=== PATIENT | male | born 1960 | race Caucasian/White ===

== ENCOUNTER 2021-01-30 19:12 | Emergency (ER) | payer MEDICARE ==
[2021-01-30] MEDS ORDERED: Famotidine 20 MG/2 ML SDV IVPUSH ONE (19:18)
[2021-01-30] MEDS ORDERED: diphenhydrAMINE 50 MG/ML SDV IVPUSH ONE (19:18)
[2021-01-30] MEDS ORDERED: EPINEPHrine 1 MG/ML SDV IM ONE (19:18)
[2021-01-30] MEDS ORDERED: Sodium Chloride 0.9% 10 ML Syringe FLUSH PRN (19:18)
[2021-01-30] MEDS ORDERED: methylPREDNISolone Sodium Succinate 125 MG/2 ML SDV IVPUSH ONE (19:20)
[2021-01-30] MEDS ORDERED: Sodium Chloride 0.9% 1,000 ML IV SCH (19:30)
[2021-01-30] MEDS ORDERED: hydrOXYzine HCl 25 MG Tab PO ONE (19:59)
--- NOTE | 2021-01-30 21:34 | EDM.PDOC ---
ED HPI GENERAL MEDICAL PROBLEM - General Chief Complaint: Allergic Reaction Stated Complaint: HIVES AND SOB Time Seen by Provider: 01/30/21 19:16 Source of Information: Reports: Patient History Limitations: Reports: No Limitations - History of Present Illness INITIAL COMMENTS - FREE TEXT/NARRATIVE: Tex is a 60-year-old male presenting to the ED with an acute anaphylactoid reaction that started about an hour ago. Patient has a history of intermittent anaphylactic reactions of unknown etiology and was prescribed methylprednisolone to take at the onset of symptoms. Patient took 2 of his tablets (10 mg each) and 2 tablets of Benadryl (50 mg total) prior to coming in. He did drive himself here. He is complaining of some shortness of breath and chest tightness. He has generalized urticaria that is quite pruritic. He states he gets about 1 of these attacks every 6 months. He has had allergy testing but they have not been able to determine what the trigger is for these reactions. Treatments READING EFFICIENCY COURSE DIRECTOR: Reports: Other Medication(s) Other Treatments READING EFFICIENCY COURSE DIRECTOR: X1 25mg benadryl, x2 4mg methylprednisolone denies pain Pain Score (Numeric/FACES): 0 - Related Data Allergies Allergy/AdvReac Type Severity Reaction Status Date / Time No Known Allergies Allergy Verified 01/30/21 19:34 Home Meds: Home Meds Latanoprost [Xalatan 0.005% Ophth Soln] 1 drop EYEBOTH BEDTIME 09/03/15 [History] Doxycycline [Vibra-Tabs] 100 mg PO ASDIRECTED PRN 01/30/21 [History] EPINEPHrine [Epipen 2-Jose M] 0.3 mg IJ ASDIRECTED PRN #2 auto.injct 01/30/21 [Rx] Fluocinonide [Lidex 0.05% Oint] 30 gm TOP BID 01/30/21 [History] Metoprolol Succinate [Toprol Xl] 25 mg PO DAILY 01/30/21 [History] hydrOXYzine pamoate [Hydroxyzine Pamoate] 25 mg PO QID PRN #30 capsule 01/30/21 [Rx] lisinopriL [Lisinopril] 20 mg PO DAILY 01/30/21 [History] Past Medical History HEENT History: Reports: Glaucoma, Impaired Vision Other HEENT History: wears glasses Cardiovascular History: Reports: Hypertension, SOB on Exertion Gastrointestinal History: Reports: Colon Polyp, GERD Genitourinary History: Reports: Renal Calculus Musculoskeletal History: Reports: Back Pain, Chronic, Neck Pain, Chronic Neurological History: Reports: Concussion, Migraines Psychiatric History: Reports: Addiction, Anxiety Endocrine/Metabolic History: Reports: Obesity/BMI 30+ Dermatologic History: Reports: Eczema - Infectious Disease History Infectious Disease History: Reports: Chicken Pox - Past Surgical History HEENT Surgical History: Reports: Oral Surgery Cardiovascular Surgical History: Reports: None Respiratory Surgical History: Reports: None GI Surgical History: Reports: Colonoscopy Male Surgical History: Reports: None Endocrine Surgical History: Reports: None Neurological Surgical History: Reports: None Musculoskeletal Surgical History: Reports: Carpal Tunnel Other Musculoskeletal Surgeries/Procedures:: left trigger finger Dermatological Surgical History: Reports: None Social & Family History - Tobacco Use Tobacco Use Status *Q: Never Tobacco User - Caffeine Use Caffeine Use: Reports: Coffee - Recreational Drug Use Recreational Drug Use: Yes Drug Use in Last 12 Months: Yes - Living Situation & Occupation Living situation: Reports: Single Occupation: Disabled (lives 2 miles from [place], [place].) ED ROS ALLERGIC REACTION - Review of Systems Review Of Systems: See Below Constitutional: Reports: No Symptoms HEENT: Reports: Throat Swelling Respiratory: Reports: Shortness of Breath Cardiovascular: Reports: Dyspnea on Exertion Endocrine: Reports: No Symptoms GI/Abdominal: Reports: Abdominal Pain (Epigastric discomfort), Nausea : Reports: No Symptoms Musculoskeletal: Reports: No Symptoms Skin: Reports: Pruritis (Severe pruritus in the distribution of the urticaria. There are some excoriations that are now bleeding on the head.), Erythema (Rushing of the skin especially around the urticaria), Urticaria (Generalized), Other (History of psoriasis) Neurological: Reports: No Symptoms Psychiatric: Reports: Anxiety Hematologic/Lymphatic: Reports: No Symptoms Immunologic: Reports: Anaphylaxis (Anaphylaxis of unknown etiology) ED EXAM GENERAL NO PERIP PULSE - Physical Exam Exam: See Below Exam Limited By: No Limitations General Appearance: Alert, Anxious, Moderate Distress, Obese Eye Exam: Bilateral Eye: EOMI, PERRL Throat/Mouth: No Airway Compromise, Other (Mild throat swelling and erythema. Minimal muffling of the voice. No stridor.) Head: Facial Swelling (Periorbital facial swelling), Other (Corrugations behind the ear that are now slightly bloody.) Neck: Supple, Non-Tender, Full Range of Motion, Other (Urticaria on the neck extending up to the jaw). No: Lymphadenopathy (R), Lymphadenopathy (L) Respiratory/Chest: No Respiratory Distress, Lungs Clear, Normal Breath Sounds. No: Rales, Rhonchi, Wheezing, Stridor Cardiovascular: Normal Peripheral Pulses, Regular Rate, Rhythm, No Murmur GI/Abdominal: Normal Bowel Sounds, Soft, Non-Tender Back Exam: Normal Inspection, Full Range of Motion Extremities: Normal Inspection, Normal Range of Motion Neurological: Alert, Oriented, Normal Cognition, No Motor/Sensory Deficits Psychiatric: Normal Affect, Anxious Skin Exam: Erythema, Excoriations, Increased Warmth, Rash (Great urticaria that has become confluent) Lymphatic: No Adenopathy Course - Vital Signs Last Recorded V/S: Last Vital Signs Temp 36.7 C 01/30/21 19:41 Pulse 84 01/30/21 22:44 Resp 12 01/30/21 22:44 BP 100/59 L 01/30/21 22:44 Pulse Ox 88 L 01/30/21 22:44 - Orders/Labs/Meds Orders: Active Orders 24 hr Category Date Time Status Sodium Chloride 0.9% [Normal Saline] 1,000 ml Med 01/30/21 19:30 Active IV ASDIRECTED Sodium Chloride 0.9% [Saline Flush] Med 01/30/21 19:18 Active 10 ml FLUSH ASDIRECTED PRN Saline Lock Insert [OM.PC] Routine Oth 01/30/21 19:18 Ordered Medication Orders Sodium Chloride (Normal Saline) 1,000 mls @ 999 mls/hr IV ASDIRECTED CHARLINE Last Admin: 01/30/21 19:20 Dose: 999 mls/hr Documented by: MALLIKA Sodium Chloride (Sodium Chloride 0.9% 10 Ml Syringe) 10 ml FLUSH ASDIRECTED PRN PRN Reason: Keep Vein Open Last Admin: 01/30/21 19:57 Dose: 10 ml Documented by: MALLIKA Meds: Medications Generic Name Dose Route Start Last Admin Trade Name Freq PRN Reason Stop Dose Admin Sodium Chloride 1,000 mls @ 999 mls/hr 01/30/21 19:30 01/30/21 19:20 Normal Saline IV 999 mls/hr ASDIRECTED CHARLINE Administration Sodium Chloride 10 ml 01/30/21 19:18 01/30/21 19:57 Sodium Chloride 0.9% 10 Ml Syringe FLUSH 10 ml ASDIRECTED PRN Administration Keep Vein Open Discontinued Medications Generic Name Dose Route Start Last Admin Trade Name Nisha PRN Reason Stop Dose Admin Diphenhydramine HCl 50 mg 01/30/21 19:18 01/30/21 19:44 Diphenhydramine 50 Mg/Ml Sdv IVPUSH 01/30/21 19:19 50 mg ONETIME ONE Administration Epinephrine HCl 0.5 mg 01/30/21 19:18 01/30/21 19:22 Epinephrine 1 Mg/Ml Sdv IM 01/30/21 19:19 0.5 mg ONETIME ONE Administration Famotidine 20 mg 01/30/21 19:18 01/30/21 19:54 Famotidine 20 Mg/2 Ml Sdv IVPUSH 01/30/21 19:19 20 mg ONETIME ONE Administration Hydroxyzine HCl 25 mg 01/30/21 19:59 01/30/21 20:09 Hydroxyzine Hcl 25 Mg Tab PO 01/30/21 20:00 25 mg ONETIME ONE Administration Methylprednisolone Sodium Succinate 125 mg 01/30/21 19:20 01/30/21 19:44 Methylprednisolone Sodium Succinate 125 Mg/2 Ml Sdv IVPUSH 01/30/21 19:21 125 mg ONETIME ONE Administration - Re-Assessments/Exams Free Text/Narrative Re-Assessment/Exam: 01/30/21 21:35 the patient was brought back to stabilization room #9 and was hooked up to manager hiv. He was given epinephrine 0.5 mg IM. An IV was established he was given a liter normal saline followed by Pepcid 20 mg IV, diphenhydramine 25 mg IV, and Solu-Medrol 125 mg IV push. The patient was given hydroxyzine 25 mg p.o. for the pruritus. He has had remarkable improvement of his rash and itching. I did discuss with him there were going to watch him for 3 hours from the time of the epinephrine to make sure he did not have rebound and worsening of his anaphylaxis. We will prescribe him an EpiPen that he may fill tomorrow. Given the degree of anaphylaxis, I encouraged him to carry the EpiPen wherever he goes. 01/30/21 22:48 patient observed for the 3 hours and did not have any rebound. He is feeling much better now. At this time I believe he suitable for discharge home in satisfactory condition. Indications return to the ED were discussed. Departure - Departure Time of Disposition: 22:48 Disposition: Home, Self-Care 01 Clinical Impression: Urticaria, Pruritus Anaphylactic reaction Qualifiers: Encounter type: initial encounter Qualified Code(s): T78.2XXA - Anaphylactic shock, unspecified, initial encounter - Discharge Information Prescriptions: EPINEPHrine [Epipen 2-Jose M] 0.3 mg IJ ASDIRECTED PRN #2 auto.injct PRN Reason: Allergies hydrOXYzine pamoate [Hydroxyzine Pamoate] 25 mg PO QID PRN #30 capsule PRN Reason: Itching Instructions: Anaphylactic Reaction, Adult, [id number], Hives, [id number] Referrals: PCP,None [Primary Care Provider] - Forms: ED Department Discharge Care Plan Goals: Because of the degree of your reaction to this last anaphylactic episode, we are going to prescribe you an EpiPen that you should carry on your persons should you have this reaction again. This is not at final treatment but advise you time to call an ambulance and get into the hospital for further treatment. You may still take your Medrol Dosepak as was previously prescribed. In addition, we will also prescribe hydroxyzine which will help with the itching that occurs with hives. You may take this up to 4 times a day as needed for itching. Should this recur in the future please do not hesitate to come into the ED as time is of the essence to correct this before airway compromise occurs. The EpiPen only buys you an additional 5 minutes before that can occur. Sepsis Event Note (ED) - Evaluation Sepsis Screening Result: No Definite Risk - Focused Exam Vital Signs: Vital Signs Temp Pulse Resp BP Pulse Ox 01/30/21 22:44 84 12 100/59 L 88 L 01/30/21 22:26 90 12 95/56 L 88 L 01/30/21 22:11 89 26 H 103/64 86 L 01/30/21 21:56 87 21 H 107/57 L 85 L 01/30/21 21:49 92 24 H 113/57 L 85 L 01/30/21 21:26 92 24 H 116/62 86 L 01/30/21 21:10 95 24 H 113/71 87 L 01/30/21 20:52 101 H 24 H 125/71 90 L 01/30/21 20:25 98 24 H 116/74 88 L 01/30/21 20:11 107 H 16 109/81 91 L 01/30/21 19:56 111 H 24 H 127/73 90 L 01/30/21 19:42 123 H 28 H 122/70 90 L 01/30/21 19:41 36.7 C 121 H 22 H 132/61 88 L 01/30/21 19:22 36.7 C 121 H 22 H 132/61 88 L - Problem List & Annotations (1) Anaphylactic reaction SNOMED Code(s): 33424608 Code(s): T78.2XXA - ANAPHYLACTIC SHOCK, UNSPECIFIED, INITIAL ENCOUNTER Status: Acute Priority: High Current Visit: Yes Qualifiers: Encounter type: initial encounter Qualified Code(s): T78.2XXA - Anaphylactic shock, unspecified, initial encounter (2) Urticaria SNOMED Code(s): 350674475 Code(s): L50.9 - URTICARIA, UNSPECIFIED Status: Acute Priority: Medium Current Visit: Yes (3) Pruritus SNOMED Code(s): 486096210 Code(s): L29.9 - PRURITUS, UNSPECIFIED Status: Acute Priority: Medium Current Visit: Yes - Problem List Review Problem List Initiated/Reviewed/Updated: Yes - My Orders Last 24 Hours: My Active Orders 01/30/21 19:18 Sodium Chloride 0.9% [Saline Flush] 10 ml FLUSH ASDIRECTED PRN Saline Lock Insert [OM.PC] Routine 01/30/21 19:30 Sodium Chloride 0.9% [Normal Saline] 1,000 ml IV ASDIRECTED - Assessment/Plan Last 24 Hours: My Active Orders 01/30/21 19:18 Sodium Chloride 0.9% [Saline Flush] 10 ml FLUSH ASDIRECTED PRN Saline Lock Insert [OM.PC] Routine 01/30/21 19:30 Sodium Chloride 0.9% [Normal Saline] 1,000 ml IV ASDIRECTED
[2021-01-30 22:45] VITALS: BP 100/59; PULSE 84
== END 2021-01-30 23:18 | disposition home or self-care (01) ==
LOC: JP.ED 19:12
DX: T78.2XXA Anaphylactic shock, unspecified, initial encounter (principal)
CPT/HCPCS: 96372; 96374; 96375; 99283; 99284; A9270; J0171; J1200; J2930; J3490; J7030

== ENCOUNTER 2021-07-06 10:22 | Emergency (ER) | payer MEDICARE ==
[2021-07-06] MEDS ORDERED: diphenhydrAMINE 50 MG/ML SDV IM ONE (10:34)
[2021-07-06] MEDS ORDERED: Famotidine 20 MG Tab PO ONE (10:35)
[2021-07-06] MEDS ORDERED: methylPREDNISolone Sodium Succinate 40 MG/1 ML SDV IM ONE (10:35)
--- NOTE | 2021-07-06 10:38 | EDM.PDOC ---
ED HPI GENERAL MEDICAL PROBLEM - General Chief Complaint: Allergic Reaction Stated Complaint: HAVING A REACTION TO SOMETHING Time Seen by Provider: 07/06/21 10:35 Source of Information: Reports: Patient, RN Notes Reviewed History Limitations: Reports: No Limitations - History of Present Illness INITIAL COMMENTS - FREE TEXT/NARRATIVE: 60-year-old gentleman presents emergency department today with developing rash consistent with hives. He does have an extensive allergy history, does carry an EpiPen in his pocket however he is never used it. He states this particular event he got up this morning feeling fine breathing okay no sore throat no difficulty with throat swelling was outside walking his dog had some itchiness around his ankles look down he noticed he has developed a rash around his sock line. He went into the house took his shirt off started developing a rash consistent with hives on his back. Then presented to the emergency department for further evaluation. - Related Data Allergies Allergy/AdvReac Type Severity Reaction Status Date / Time No Known Allergies Allergy Verified 07/06/21 10:31 Home Meds: Home Meds Latanoprost [Xalatan 0.005% Ophth Soln] 1 drop EYEBOTH BEDTIME 09/03/15 [History] Doxycycline [Vibra-Tabs] 100 mg PO ASDIRECTED PRN 01/30/21 [History] EPINEPHrine [Epipen 2-Jose M] 0.3 mg IJ ASDIRECTED PRN #2 auto.injct 01/30/21 [Rx] Fluocinonide [Lidex 0.05% Oint] 30 gm TOP BID 01/30/21 [History] Metoprolol Succinate [Toprol Xl] 25 mg PO DAILY 01/30/21 [History] hydrOXYzine pamoate [Hydroxyzine Pamoate] 25 mg PO QID PRN #30 capsule 01/30/21 [Rx] lisinopriL [Lisinopril] 20 mg PO DAILY 01/30/21 [History] predniSONE [Prednisone] 20 mg PO ASDIRECTED PRN 07/06/21 [History] Past Medical History HEENT History: Reports: Glaucoma, Impaired Vision Other HEENT History: wears glasses Cardiovascular History: Reports: Hypertension, SOB on Exertion Gastrointestinal History: Reports: Colon Polyp, GERD Genitourinary History: Reports: Renal Calculus Musculoskeletal History: Reports: Back Pain, Chronic, Neck Pain, Chronic Neurological History: Reports: Concussion, Migraines Psychiatric History: Reports: Addiction, Anxiety Endocrine/Metabolic History: Reports: Obesity/BMI 30+ Dermatologic History: Reports: Eczema - Infectious Disease History Infectious Disease History: Reports: Chicken Pox - Past Surgical History HEENT Surgical History: Reports: Oral Surgery Cardiovascular Surgical History: Reports: None Respiratory Surgical History: Reports: None GI Surgical History: Reports: Colonoscopy Male Surgical History: Reports: None Endocrine Surgical History: Reports: None Neurological Surgical History: Reports: None Musculoskeletal Surgical History: Reports: Carpal Tunnel Other Musculoskeletal Surgeries/Procedures:: left trigger finger Dermatological Surgical History: Reports: None Social & Family History - Caffeine Use Caffeine Use: Reports: Coffee - Living Situation & Occupation Living situation: Reports: Single Occupation: Disabled (lives [place] miles from [facility]) ED ROS ALLERGIC REACTION - Review of Systems Review Of Systems: See Below Constitutional: Reports: No Symptoms HEENT: Reports: No Symptoms Respiratory: Reports: No Symptoms Cardiovascular: Reports: No Symptoms GI/Abdominal: Reports: No Symptoms Skin: Reports: Rash ED EXAM GENERAL NO PERIP PULSE - Physical Exam Exam: See Below Exam Limited By: No Limitations General Appearance: Alert, WD/WN, No Apparent Distress Respiratory/Chest: No Respiratory Distress, Lungs Clear, Normal Breath Sounds, No Accessory Muscle Use, Chest Non-Tender Cardiovascular: Regular Rate, Rhythm, No Murmur Skin Exam: Warm, Dry, Other (Hives trunk ankles) Course - Vital Signs Last Recorded V/S: Last Vital Signs Temp 97.8 F 07/06/21 10:46 Pulse 87 07/06/21 11:21 Resp 16 07/06/21 11:21 BP 110/67 07/06/21 11:21 Pulse Ox 97 07/06/21 11:21 - Orders/Labs/Meds Meds: Medications Discontinued Medications Generic Name Dose Route Start Last Admin Trade Name Freq PRN Reason Stop Dose Admin Diphenhydramine HCl 50 mg 07/06/21 10:34 07/06/21 10:42 Diphenhydramine 50 Mg/Ml Sdv IM 07/06/21 10:35 50 mg ONETIME ONE Administration Famotidine 20 mg 07/06/21 10:35 07/06/21 10:42 Famotidine 20 Mg Tab PO 07/06/21 10:36 20 mg ONETIME ONE Administration Methylprednisolone Sodium Succinate 40 mg 07/06/21 10:35 07/06/21 10:43 Methylprednisolone Sodium Succinate 40 Mg/1 Ml Sdv IM 07/06/21 10:36 40 mg ONETIME ONE Administration Departure - Departure Time of Disposition: 12:32 Disposition: Home, Self-Care 01 Condition: Fair Clinical Impression: Anaphylactic reaction Qualifiers: Encounter type: initial encounter Qualified Code(s): T78.2XXA - Anaphylactic shock, unspecified, initial encounter - Discharge Information Referrals: Celi Lechuga MD [Primary Care Provider] - Forms: ED Department Discharge Additional Instructions: continue to use Benadryl as needed, please followup with your primary care provider in 3-5 days if not better, please call return to the emergency department with worsening of symptoms. Sepsis Event Note (ED) - Focused Exam Vital Signs: Vital Signs Temp Pulse Resp BP Pulse Ox 07/06/21 11:21 87 16 110/67 97 07/06/21 10:46 97.8 F 104 H 12 170/78 H 94 L - Assessment/Plan Plan: Assessment Acuity = acute Site and laterality = allergic reaction Etiology = unknown Manifestations = rash now resolved Location of injury = Home Lab values = none Plan Good improvement combination Benadryl, Pepcid and Solu-Medrol he does have an EpiPen already he will follow-up with his primary care as needed This note was dictated using [employer] voice recognition software please call with any questions on syntax or grammar.
[2021-07-06 11:22] VITALS: BP 110/67; PULSE 87
== END 2021-07-06 13:15 | disposition home or self-care (01) ==
LOC: JP.ED 10:22
DX: T78.2XXA Anaphylactic shock, unspecified, initial encounter (principal); I10 Essential (primary) hypertension; E66.9 Obesity, unspecified; Z68.34 Body mass index [BMI] 34.0-34.9, adult; Z79.899 Other long term (current) drug therapy
CPT/HCPCS: 96372; 99284; A9270; J1200; J2920

== ENCOUNTER 2021-07-08 20:31 | Emergency (ER) | payer MEDICARE ==
[2021-07-08 21:17] VITALS: BP 153/88; PULSE 86
[2021-07-08] MEDS ORDERED: Sodium Chloride 0.9% 10 ML Syringe FLUSH PRN (22:41)
--- NOTE | 2021-07-08 23:21 | EDM.PDOC ---
ED HPI GENERAL MEDICAL PROBLEM - General Chief Complaint: General Stated Complaint: TIRED, CHILLS, DIZZY Time Seen by Provider: 07/08/21 21:52 Source of Information: Reports: Patient History Limitations: Reports: No Limitations - History of Present Illness INITIAL COMMENTS - FREE TEXT/NARRATIVE: Patient presents emergency room today secondary to concerns about being tired lethargic having intermittent dizzy spells chills he denies any nausea vomiting no chest pain or discomfort no shortness of breath or difficulty breathing. He states that he was seen in the emergency room couple of days ago secondary to idiopathic allergic reaction he states that this is a chronic issue has been going on for 12 years and he was discharged after evaluation and treatment. Patient states that he takes Benadryl as needed based on symptoms of concern he has taken 2 Benadryl tonight because he just felt like something was not right. Additionally patient states that he takes medication x2 for his blood pressure but he does not know what the medications are PMH--HTN, obesity, former tobacco use d/o, recovered alcoholic, GERD, idiopathic allergic reaction/responses Meds--patient does not know, EMR reviewed NKDA Tob--former EtOH--recovered alcoholic x 6+ years Drugs--denies Patient reports that he has had his COVID immunization + booster as well as his annual influenza vaccination - Related Data Allergies Allergy/AdvReac Type Severity Reaction Status Date / Time No Known Allergies Allergy Verified 07/06/21 10:31 Home Meds: Home Meds Latanoprost [Xalatan 0.005% Ophth Soln] 1 drop EYEBOTH BEDTIME 09/03/15 [History] Doxycycline [Vibra-Tabs] 100 mg PO ASDIRECTED PRN 01/30/21 [History] EPINEPHrine [Epipen 2-Jose M] 0.3 mg IJ ASDIRECTED PRN #2 auto.injct 01/30/21 [Rx] Fluocinonide [Lidex 0.05% Oint] 30 gm TOP BID 01/30/21 [History] Metoprolol Succinate [Toprol Xl] 25 mg PO DAILY 01/30/21 [History] hydrOXYzine pamoate [Hydroxyzine Pamoate] 25 mg PO QID PRN #30 capsule 01/30/21 [Rx] lisinopriL [Lisinopril] 20 mg PO DAILY 01/30/21 [History] predniSONE [Prednisone] 20 mg PO ASDIRECTED PRN 07/06/21 [History] Past Medical History HEENT History: Reports: Glaucoma, Impaired Vision Other HEENT History: wears glasses Cardiovascular History: Reports: Hypertension, SOB on Exertion Gastrointestinal History: Reports: Colon Polyp, GERD Genitourinary History: Reports: Renal Calculus Musculoskeletal History: Reports: Back Pain, Chronic, Neck Pain, Chronic Neurological History: Reports: Concussion, Migraines Psychiatric History: Reports: Addiction, Anxiety Endocrine/Metabolic History: Reports: Obesity/BMI 30+ Dermatologic History: Reports: Eczema - Infectious Disease History Infectious Disease History: Reports: Chicken Pox - Past Surgical History HEENT Surgical History: Reports: Oral Surgery Cardiovascular Surgical History: Reports: None Respiratory Surgical History: Reports: None GI Surgical History: Reports: Colonoscopy Male Surgical History: Reports: None Endocrine Surgical History: Reports: None Neurological Surgical History: Reports: None Musculoskeletal Surgical History: Reports: Carpal Tunnel Other Musculoskeletal Surgeries/Procedures:: left trigger finger Dermatological Surgical History: Reports: None Social & Family History - Tobacco Use Tobacco Use Status *Q: Former Tobacco User Used Tobacco, but Quit: Yes Month/Year Tobacco Last Used: many years ago - Caffeine Use Caffeine Use: Reports: Coffee - Recreational Drug Use Recreational Drug Use: No - Living Situation & Occupation Living situation: Reports: Single Occupation: Disabled (lives [place] miles from [place], [place] ED ROS GENERAL - Review of Systems Review Of Systems: Comprehensive ROS is negative, except as noted in HPI. Constitutional: Reports: Chills, Fatigue HEENT: Reports: No Symptoms Respiratory: Reports: No Symptoms Cardiovascular: Reports: No Symptoms Endocrine: Reports: Fatigue GI/Abdominal: Reports: No Symptoms : Reports: No Symptoms Musculoskeletal: Reports: No Symptoms Neurological: Reports: Dizziness ED EXAM, GENERAL - Physical Exam Exam: See Below Exam Limited By: No Limitations General Appearance: Alert, WD/WN, No Apparent Distress, Obese Eye Exam: Bilateral Eye: EOMI, Normal Inspection, PERRL Ears: Normal External Exam, Hearing Grossly Normal Nose: Normal Inspection Throat/Mouth: Normal Inspection, Normal Oropharynx, Normal Voice, No Airway Compromise Head: Atraumatic, Normocephalic Neck: Normal Inspection, Supple, Non-Tender, Full Range of Motion Respiratory/Chest: No Respiratory Distress, Lungs Clear, Normal Breath Sounds, Chest Non-Tender Cardiovascular: Normal Peripheral Pulses, Regular Rate, Rhythm, No Edema, No Murmur Peripheral Pulses: 2+: Radial (L), Radial (R) GI/Abdominal: Normal Bowel Sounds, Soft, Non-Tender, No Distention (Male) Exam: Deferred Rectal (Males) Exam: Deferred Back Exam: Normal Inspection Extremities: Normal Inspection, Normal Range of Motion, No Pedal Edema, Normal Capillary Refill Neurological: Alert, Oriented, CN II-XII Intact, Normal Cognition, No Motor/Sensory Deficits Psychiatric: Normal Affect, Normal Mood Skin Exam: Warm, Dry, Intact, Normal Color #1 Interpretation EKG Date: 07/08/21 Time: 22:53 (read at 2300, no STEMI) Rhythm: NSR Rate (Beats/Min): 76 [place]: Normal P-Wave: Present QRS: Normal (Interval is 173 QRS is 87) ST-T: Normal QT: Normal (QT/QTc is 367/413) EKG Interpretation Comments: Normal sinus rhythm normal EKG there is low voltage extremity leads but otherwise no acute concerns are noted Course - Vital Signs Text/Narrative:: 0125--in room to discuss with patient today's lab findings to include mild elevation of white blood cell11.6 with a mild elevation of neutrophils at 66% but in the setting of patient having received IV steroids 2 days ago this is not unexpected. Metabolic panel is noted for significant finding of glucose 196 in a patient without known diagnosis of diabetes it is unclear at this point whether this is related to new onset diabetes further steroid-induced or type II so hemoglobin A1c has been ordered and will be resulted in approximately 20 minutes troponin was negative at less than 0.017 CRP is mildly increased at 1.11 which again can be related to his recent ER visit 2 days ago for idiopathic allergic reaction use of EpiPen and IV steroids. TSH was normal at 3.1 he had a negative urine analysis negative urine drug screen negative influenza negative Covid testing. I did go in the room and discussed all these items with patient as well as pending hemoglobin A1c which is a test to determine whether patient is diabetic new onset. I did discuss with him that if this does return elevated next recommendation and care is to follow-up with primary care provider in the clinic for further medication management as well as diabetic teaching. Patient verbalized understanding agreement with plan of care 0145--HgA1C has returned slightly elevated. d/w patient results and recommendation for PCM follow up in the next 3-5 days for further evaluation and discussion of care recommendations Laboratory Tests 07/08/21 23:00 Hemoglobin A1c 6.6 H Last Recorded V/S: Last Vital Signs Temp 97.9 F 07/08/21 21:22 Pulse 86 07/08/21 21:22 Resp 16 07/08/21 21:22 BP 153/88 H 07/08/21 21:22 Pulse Ox 94 L 07/08/21 21:22 - Orders/Labs/Meds Orders: Active Orders 24 hr Category Date Time Status Oxygen Therapy [RC] PRN Care 07/08/21 22:41 Active Peripheral IV Care [RC] . DIRECTED Care 07/08/21 22:43 Active Pulse Oximetry [RC] CONTINUOUS Care 07/08/21 22:41 Active Up ad Gayatri [RC] ASDIRECTED Care 07/08/21 22:41 Active Vital Signs [RC] PER UNIT ROUTINE Care 07/08/21 22:41 Active Clear Liquid Diet [DIET] Diet 07/08/21 Breakfast Active Sodium Chloride 0.9% [Saline Flush] Med 07/08/21 22:41 Active 10 ml FLUSH ASDIRECTED PRN Isolation [COMM] Stat Oth 07/08/21 22:43 Ordered Peripheral IV Insertion Adult [OM.PC] Stat Oth 07/08/21 22:41 Ordered EKG 12 Lead [EK] Urgent Ther 07/08/21 22:41 Ordered Medication Orders Sodium Chloride (Sodium Chloride 0.9% 10 Ml Syringe) 10 ml FLUSH ASDIRECTED PRN PRN Reason: Keep Vein Open Last Admin: 07/08/21 23:10 Dose: 10 ml Documented by: YUE Labs: Laboratory Tests 07/08/21 07/08/21 07/08/21 Range/Units 23:00 23:00 23:00 WBC 11.6 H (4.5-11.0) K/uL RBC 5.04 (4.30-5.90) M/uL Hgb 14.3 (12.0-15.0) g/dL Hct 44.4 (40.0-54.0) % MCV 88 (80-98) fL MCH 28 (27-31) pg MCHC 32 (32-36) % Plt Count 293 (150-400) K/uL Neut % (Auto) 66.2 H (36-66) % Lymph % (Auto) 22.4 L (24-44) % [place] % (Auto) 9.1 H (2-6) % Eos % (Auto) 1.7 L (2-4) % Baso % (Auto) 0.6 (0-1) % Sodium 139 L (140-148) mmol/L Potassium 4.1 (3.6-5.2) mmol/L Chloride 102 (100-108) mmol/L Carbon Dioxide 31 (21-32) mmol/L Anion Gap 10.1 (5.0-14.0) mmol/L BUN 18 (7-18) mg/dL Creatinine 1.1 (0.8-1.3) mg/dL Est Cr Clr Drug Dosing 65.93 mL/min Estimated GFR (MDRD) > 60 (>60) Glucose 196 H (74-106) mg/dL Hemoglobin A1c (4.5-6.2) % Calcium 8.1 L (8.5-10.1) mg/dL Magnesium 2.1 (1.8-2.4) mg/dL Total Bilirubin 0.2 (0.2-1.0) mg/dL AST 23 (15-37) U/L ALT 42 (12-78) U/L Alkaline Phosphatase 57 (46-116) U/L Creatine Kinase 273 (39-308) U/L Troponin I < 0.017 (0.000-0.056) ng/mL C-Reactive Protein 1.11 H (0.0-0.3) mg/dL Total Protein 6.7 (6.4-8.2) g/dL Albumin 3.5 (3.4-5.0) g/dL Globulin 3.2 (2.3-3.5) g/dL Albumin/Globulin Ratio 1.1 L (1.2-2.2) Amylase 37 (25-115) U/L Lipase 68 L (73-393) U/L TSH, Ultra Sensitive 3.160 (0.358-3.740) uIU/mL Urine Color (YELLOW) Urine Appearance (CLEAR) Urine pH (5.0-8.0) Ur Specific [place] (1.008-1.030) Urine Protein (NEGATIVE) mg/dL Urine Glucose (UA) (NEGATIVE) mg/dL Urine Ketones (NEGATIVE) mg/dL Urine Occult Blood (NEGATIVE) Urine Nitrite (NEGATIVE) Urine Bilirubin (NEGATIVE) Urine Urobilinogen (0.2-1.0) EU/dL Ur Leukocyte Esterase (NEGATIVE) Urine RBC (0-5) Urine WBC (0-5) Ur Epithelial Cells Amorphous Sediment Urine Bacteria Urine Mucus Urine Opiates Screen (NEGATIVE) Ur Oxycodone Screen (NEGATIVE) Urine Methadone Screen (NEGATIVE) Ur Propoxyphene Screen (NEGATIVE) Ur Barbiturates Screen (NEGATIVE) Ur Tricyclics Screen (NEGATIVE) Ur Phencyclidine Scrn (NEGATIVE) Ur Amphetamine Screen (NEGATIVE) U Methamphetamines Scrn (NEGATIVE) Urine MDMA Screen (NEGATIVE) U Benzodiazepines Scrn (NEGATIVE) U Cocaine Metab Screen (NEGATIVE) U Marijuana (THC) Screen (NEGATIVE) Ethyl Alcohol mg/dL Influenza Type A RNA (NEGATIVE) Influenza Type B RNA (NEGATIVE) SARS-CoV-2 RNA (ALYSSA) (NEGATIVE) 07/08/21 07/08/21 07/08/21 Range/Units 23:00 23:00 23:10 WBC (4.5-11.0) K/uL RBC (4.30-5.90) M/uL Hgb (12.0-15.0) g/dL Hct (40.0-54.0) % MCV (80-98) fL MCH (27-31) pg MCHC (32-36) % Plt Count (150-400) K/uL Neut % (Auto) (36-66) % Lymph % (Auto) (24-44) % [place] % (Auto) (2-6) % Eos % (Auto) (2-4) % Baso % (Auto) (0-1) % Sodium (140-148) mmol/L Potassium (3.6-5.2) mmol/L Chloride (100-108) mmol/L Carbon Dioxide (21-32) mmol/L Anion Gap (5.0-14.0) mmol/L BUN (7-18) mg/dL Creatinine (0.8-1.3) mg/dL Est Cr Clr Drug Dosing mL/min Estimated GFR (MDRD) (>60) Glucose (74-106) mg/dL Hemoglobin A1c 6.6 H (4.5-6.2) % Calcium (8.5-10.1) mg/dL Magnesium (1.8-2.4) mg/dL Total Bilirubin (0.2-1.0) mg/dL AST (15-37) U/L ALT (12-78) U/L Alkaline Phosphatase (46-116) U/L Creatine Kinase (39-308) U/L Troponin I (0.000-0.056) ng/mL C-Reactive Protein (0.0-0.3) mg/dL Total Protein (6.4-8.2) g/dL Albumin (3.4-5.0) g/dL Globulin (2.3-3.5) g/dL Albumin/Globulin Ratio (1.2-2.2) Amylase (25-115) U/L Lipase (73-393) U/L TSH, Ultra Sensitive (0.358-3.740) uIU/mL Urine Color Yellow (YELLOW) Urine Appearance Clear (CLEAR) Urine pH 5.5 (5.0-8.0) Ur Specific [place] 1.025 (1.008-1.030) Urine Protein Negative (NEGATIVE) mg/dL Urine Glucose (UA) 250 H (NEGATIVE) mg/dL Urine Ketones Trace H (NEGATIVE) mg/dL Urine Occult Blood Negative (NEGATIVE) Urine Nitrite Negative (NEGATIVE) Urine Bilirubin Negative (NEGATIVE) Urine Urobilinogen 0.2 (0.2-1.0) EU/dL Ur Leukocyte Esterase Negative (NEGATIVE) Urine RBC 0-5 (0-5) Urine WBC 0-5 (0-5) Ur Epithelial Cells Rare Amorphous Sediment Not seen Urine Bacteria Not seen Urine Mucus Not seen Urine Opiates Screen (NEGATIVE) Ur Oxycodone Screen (NEGATIVE) Urine Methadone Screen (NEGATIVE) Ur Propoxyphene Screen (NEGATIVE) Ur Barbiturates Screen (NEGATIVE) Ur Tricyclics Screen (NEGATIVE) Ur Phencyclidine Scrn (NEGATIVE) Ur Amphetamine Screen (NEGATIVE) U Methamphetamines Scrn (NEGATIVE) Urine MDMA Screen (NEGATIVE) U Benzodiazepines Scrn (NEGATIVE) U Cocaine Metab Screen (NEGATIVE) U Marijuana (THC) Screen (NEGATIVE) Ethyl Alcohol < 3 mg/dL Influenza Type A RNA (NEGATIVE) Influenza Type B RNA (NEGATIVE) SARS-CoV-2 RNA (ALYSSA) (NEGATIVE) 07/08/21 07/08/21 Range/Units 23:10 23:10 WBC (4.5-11.0) K/uL RBC (4.30-5.90) M/uL Hgb (12.0-15.0) g/dL Hct (40.0-54.0) % MCV (80-98) fL MCH (27-31) pg MCHC (32-36) % Plt Count (150-400) K/uL Neut % (Auto) (36-66) % Lymph % (Auto) (24-44) % [place] % (Auto) (2-6) % Eos % (Auto) (2-4) % Baso % (Auto) (0-1) % Sodium (140-148) mmol/L Potassium (3.6-5.2) mmol/L Chloride (100-108) mmol/L Carbon Dioxide (21-32) mmol/L Anion Gap (5.0-14.0) mmol/L BUN (7-18) mg/dL Creatinine (0.8-1.3) mg/dL Est Cr Clr Drug Dosing mL/min Estimated GFR (MDRD) (>60) Glucose (74-106) mg/dL Hemoglobin A1c (4.5-6.2) % Calcium (8.5-10.1) mg/dL Magnesium (1.8-2.4) mg/dL Total Bilirubin (0.2-1.0) mg/dL AST (15-37) U/L ALT (12-78) U/L Alkaline Phosphatase (46-116) U/L Creatine Kinase (39-308) U/L Troponin I (0.000-0.056) ng/mL C-Reactive Protein (0.0-0.3) mg/dL Total Protein (6.4-8.2) g/dL Albumin (3.4-5.0) g/dL Globulin (2.3-3.5) g/dL Albumin/Globulin Ratio (1.2-2.2) Amylase (25-115) U/L Lipase (73-393) U/L TSH, Ultra Sensitive (0.358-3.740) uIU/mL Urine Color (YELLOW) Urine Appearance (CLEAR) Urine pH (5.0-8.0) Ur Specific [place] (1.008-1.030) Urine Protein (NEGATIVE) mg/dL Urine Glucose (UA) (NEGATIVE) mg/dL Urine Ketones (NEGATIVE) mg/dL Urine Occult Blood (NEGATIVE) Urine Nitrite (NEGATIVE) Urine Bilirubin (NEGATIVE) Urine Urobilinogen (0.2-1.0) EU/dL Ur Leukocyte Esterase (NEGATIVE) Urine RBC (0-5) Urine WBC (0-5) Ur Epithelial Cells Amorphous Sediment Urine Bacteria Urine Mucus Urine Opiates Screen Negative (NEGATIVE) Ur Oxycodone Screen Negative (NEGATIVE) Urine Methadone Screen Negative (NEGATIVE) Ur Propoxyphene Screen Negative (NEGATIVE) Ur Barbiturates Screen Negative (NEGATIVE) Ur Tricyclics Screen Negative (NEGATIVE) Ur Phencyclidine Scrn Negative (NEGATIVE) Ur Amphetamine Screen Negative (NEGATIVE) U Methamphetamines Scrn Negative (NEGATIVE) Urine MDMA Screen Negative (NEGATIVE) U Benzodiazepines Scrn Negative (NEGATIVE) U Cocaine Metab Screen Negative (NEGATIVE) U Marijuana (THC) Screen Negative (NEGATIVE) Ethyl Alcohol mg/dL Influenza Type A RNA Negative (NEGATIVE) Influenza Type B RNA Negative (NEGATIVE) SARS-CoV-2 RNA (ALYSSA) Negative (NEGATIVE) Meds: Medications Generic Name Dose Route Start Last Admin Trade Name Freq PRN Reason Stop Dose Admin Sodium Chloride 10 ml 07/08/21 22:41 07/08/21 23:10 Sodium Chloride 0.9% 10 Ml Syringe FLUSH 10 ml ASDIRECTED PRN Administration Keep Vein Open Departure - Departure Time of Disposition: 01:47 Disposition: Home, Self-Care 01 Clinical Impression: Hyperglycemia, unspecified Fatigue Qualifiers: Fatigue type: unspecified Qualified Code(s): R53.83 - Other fatigue Hypertension Qualifiers: Hypertension type: primary hypertension Qualified Code(s): I10 - Essential (primary) hypertension - Discharge Information *PRESCRIPTION DRUG MONITORING PROGRAM REVIEWED*: Not Applicable *COPY OF PRESCRIPTION DRUG MONITORING REPORT IN PATIENT TAURUS: Not Applicable Instructions: Fatigue, Hyperglycemia, Aman-gl-Fyzz Referrals: Celi Lechuga MD [Primary Care Provider] - Forms: ED Department Discharge Additional Instructions: As discussed the only abnormal finding of concern was noted to be your elevated glucose at 196 likely that this is related to recent steroid administration although there is question as to whether you are developing steroid-induced versus type 2 diabetes. Her hemoglobin A1c was 6.6 which does qualify for a diabetes diagnosis. Recommend at this time you follow-up with your primary care provider regarding further evaluation as well as diabetic education referral. Ensure that you are drinking any of fluidswater, limited juice, sports drinks of choice that are low sugar in variety to ensure that you are staying well- hydrated. Elevated blood glucose levels can cause some dehydration as a cause you see you to urinate more frequently It is recommended that you avoid simple sugars such as candy bars cakes sweetened drinks/beverages as well as avoid increased amounts of juices fruits or simple carbohydrates such as breads/rice/cereals/pastas as these cause blood sugars to elevate Sepsis Event Note (ED) - Evaluation Sepsis Screening Result: No Definite Risk - Focused Exam Vital Signs: Vital Signs Temp Pulse Resp BP Pulse Ox 07/08/21 21:22 97.9 F 86 16 153/88 H 94 L 07/08/21 21:16 97.9 F 86 16 153/88 H 94 L - My Orders Last 24 Hours: My Active Orders 07/08/21 Breakfast Clear Liquid Diet [DIET] 07/08/21 22:41 Oxygen Therapy [RC] PRN Pulse Oximetry [RC] CONTINUOUS Up ad Gayatri [RC] ASDIRECTED Vital Signs [RC] PER UNIT ROUTINE Sodium Chloride 0.9% [Saline Flush] 10 ml FLUSH ASDIRECTED PRN Peripheral IV Insertion Adult [OM.PC] Stat EKG 12 Lead [EK] Urgent 07/08/21 22:43 Peripheral IV Care [RC] . DIRECTED Isolation [COMM] Stat - Assessment/Plan Last 24 Hours: My Active Orders 07/08/21 Breakfast Clear Liquid Diet [DIET] 07/08/21 22:41 Oxygen Therapy [RC] PRN Pulse Oximetry [RC] CONTINUOUS Up ad Gayatri [RC] ASDIRECTED Vital Signs [RC] PER UNIT ROUTINE Sodium Chloride 0.9% [Saline Flush] 10 ml FLUSH ASDIRECTED PRN Peripheral IV Insertion Adult [OM.PC] Stat EKG 12 Lead [EK] Urgent 07/08/21 22:43 Peripheral IV Care [RC] . DIRECTED Isolation [COMM] Stat
[2021-07-08 23:50] LABS: CORONAVIRUS COVID-19 NAA NEGATIVE (NEGATIVE)
[2021-07-09 01:33] LABS: HEMOGLOBIN A1C 6.6 % (4.5-6.2)
== END 2021-07-09 02:02 | disposition home or self-care (01) ==
LOC: JP.ED 20:31
DX: R73.9 Hyperglycemia, unspecified (principal); I10 Essential (primary) hypertension; R53.83 Other fatigue; E66.9 Obesity, unspecified; Z68.35 Body mass index [BMI] 35.0-35.9, adult; Z87.891 Personal history of nicotine dependence; Z79.899 Other long term (current) drug therapy; Z20.822 Contact with and (suspected) exposure to COVID-19
CPT/HCPCS: 0240U; 36415; 80053; 80305; 80307; 81001; 82150; 82550; 83036; 83690; 83735; 84443; 84484; 85025; 86140; 93005; 99284

== ENCOUNTER 2021-08-21 06:55 | Day surgery (SDC) | payer MEDICARE ==
[2021-08-21] MEDS ORDERED: fentaNYL 100 MCG/2 ML SDV ONE (07:28)
[2021-08-21] MEDS ORDERED: Propofol 200 MG/20 ML SDV ONE (07:28)
[2021-08-21] MEDS ORDERED: Midazolam 1 MG/ML 2 ML SDV ONE (07:29)
[2021-08-21] MEDS ORDERED: Sodium Chloride 0.9% 1,000 ML IV SCH (07:30)
[2021-08-21 07:43] LABS: CORONAVIRUS COVID-19 NAA NEGATIVE (NEGATIVE)
[2021-08-21 10:28] VITALS: BP 111/76; PULSE 84
== END 2021-08-21 10:40 | disposition home or self-care (01) ==
LOC: JP.SDS 06:55
PROVIDERS: ATTEND Surgery
DX: Z12.11 Encounter for screening for malignant neoplasm of colon (principal); D12.2 Benign neoplasm of ascending colon; K57.30 Diverticulosis of large intestine without perforation or abscess without bleeding; I10 Essential (primary) hypertension; E11.40 Type 2 diabetes mellitus with diabetic neuropathy, unspecified; E66.9 Obesity, unspecified; Z01.812 Encounter for preprocedural laboratory examination; Z20.822 Contact with and (suspected) exposure to COVID-19
CPT/HCPCS: 0241U; 45380; 45390; J2250; J2704; J3010; J7030

== ENCOUNTER 2022-02-03 23:12 | Emergency (ER) | payer MEDICARE ==
[2022-02-03 23:24] VITALS: BP 158/85; PULSE 94
[2022-02-04] MEDS ORDERED: Cetirizine 10 MG Tab PO ONE (00:03)
== END 2022-02-04 00:28 | disposition home or self-care (01) ==
LOC: JP.ED 23:12
DX: L50.1 Idiopathic urticaria (principal); I10 Essential (primary) hypertension; K21.9 Gastro-esophageal reflux disease without esophagitis; E66.9 Obesity, unspecified; Z79.82 Long term (current) use of aspirin; Z79.899 Other long term (current) drug therapy; Z68.31 Body mass index [BMI] 31.0-31.9, adult
CPT/HCPCS: 99281; 99283; A9270

== ENCOUNTER 2022-12-14 07:55 | Day surgery (SDC) | payer MEDICARE ==
[2022-12-14] MEDS ORDERED: Acetaminophen 500 MG Tab PO ONE (10:45)
[2022-12-14] MEDS ORDERED: Lactated Ringers 1,000 ML IV SCH (11:00)
[2022-12-14] MEDS ORDERED: Lidocaine 1% with EPINEPHrine 1:100,000 50 ML MDV ONE (11:30)
[2022-12-14] MEDS ORDERED: Bupivacaine 0.5% 50 ML MDV ONE (11:30)
[2022-12-14] MEDS ORDERED: ceFAZolin 2 GM in Premix Bag 1 BAG IV ONE (11:30)
[2022-12-14] MEDS ORDERED: Propofol 200 MG/20 ML SDV ONE ×2 (13:31→14:32)
[2022-12-14] MEDS ORDERED: fentaNYL 100 MCG/2 ML SDV ONE (13:31)
[2022-12-14] MEDS ORDERED: Midazolam 1 MG/ML 2 ML SDV ONE (13:31)
[2022-12-14 15:41] VITALS: BP 135/80; PULSE 68
== END 2022-12-14 16:00 | disposition home or self-care (01) ==
LOC: JP.SDS 07:55
PROVIDERS: ATTEND Student in an Organized Health Care Education/Training Program
DX: C83.30 Diffuse large B-cell lymphoma, unspecified site (principal); M54.50 Low back pain, unspecified; G89.29 Other chronic pain; E78.5 Hyperlipidemia, unspecified; I10 Essential (primary) hypertension; E11.42 Type 2 diabetes mellitus with diabetic polyneuropathy; E66.9 Obesity, unspecified; Z98.890 Other specified postprocedural states; Z87.891 Personal history of nicotine dependence; Z79.899 Other long term (current) drug therapy; Z68.32 Body mass index [BMI] 32.0-32.9, adult
CPT/HCPCS: 36561; 71045; 77001; A9270; C1788; J1642; J2250; J2704; J3010; J3490; J7120

== ENCOUNTER 2025-02-12 12:42 | Emergency (ER) | payer MEDICARE ==
[2025-02-12 13:26] VITALS: BP 153/82; PULSE 76
== END 2025-02-12 14:00 | disposition home or self-care (01) ==
LOC: JP.ED 12:42
DX: R05.1 Acute cough (principal); I10 Essential (primary) hypertension; E78.00 Pure hypercholesterolemia, unspecified; E66.9 Obesity, unspecified; Z79.82 Long term (current) use of aspirin; Z79.899 Other long term (current) drug therapy; Z68.33 Body mass index [BMI] 33.0-33.9, adult
CPT/HCPCS: 99283

== ENCOUNTER 2025-07-05 06:26 | Emergency (ER) | payer MEDICARE ==
[2025-07-05 06:40] VITALS: BP 158/94; PULSE 100
[2025-07-05] MEDS: methylPREDNISolone Sodium Succinate 125 MG/2 ML SDV IM ONE (07:34)
[2025-07-05] MEDS: diphenhydrAMINE 50 MG/ML SDV IM ONE (07:34)
== END 2025-07-05 08:35 | disposition home or self-care (01) ==
LOC: JP.ED 06:26
DX: L50.1 Idiopathic urticaria (principal); I10 Essential (primary) hypertension; E78.00 Pure hypercholesterolemia, unspecified; E66.9 Obesity, unspecified; Z87.891 Personal history of nicotine dependence; Z79.82 Long term (current) use of aspirin; Z79.899 Other long term (current) drug therapy; Z68.34 Body mass index [BMI] 34.0-34.9, adult
CPT/HCPCS: 96372; 99284; J1200; J2919